=== PATIENT | female | born 1935 | race Caucasian/White ===

== ENCOUNTER 2024-02-05 08:02 | Day surgery (SDC) | payer MEDICARE, OTHER, SELFPAY ==
[2024-02-05] VITALS (11 sets, daily range): BP systolic 120–150; BP diastolic 48–139; BMI 20.4
--- NOTE | 2024-02-05 13:07 | ITS.CL.PACE ---
Addendum entered and electronically signed by Kike Toro MD 02/06/24 10:37:
Correction/addition:
The procedure is in addition of atrial lead to the pacemaker lead. The procedure should say
'conversion of single-chamber pacemaker to dual-chamber pacemaker'
The previous generator was removed and a new generator capable of atrial and ventricular pacing lead was implanted.
Explanted generator: Generator: Mixpanel; Model: W1DR01; Serial # [id number]�-implanted on 11/16/2020�explanted on 02/05/2024.
Original Note:
[employer] - Pacemaker Implant
Pacemaker Implant
Procedure Report:
Single Chamber Pacemaker Placement:
Ms. Matos is a very pleasant 89 yrs old woman who presented with recurrent atrial arrhtyhmia s/p single chamber PPM and has had AVJ ablation has achieved sinus rhythm now with AV dyssynchrony with fatigue and lethargy and is advised addition of
atrial lead for improved atrioventricular synchronization.�
Indications: Atrial ventricular dyssynchrony with pacemaker dependent patient.
Date of the Procedure: 02/05/2024
Pre-Operative Diagnosis: Atrial ventricular dyssynchrony
Post-Operative Diagnosis: Atrial ventricular dyssynchrony
Procedure Performed: ADDITION OF ATRIAL LEAD TO UPGRADE TO DUAL CHAMBER PACEMAKER IMPLANTATION
Performing Physician:
Kike Toro MD
Assistants:
EP staff
Anesthesia:
See anesthesia records
Pre-operative antibiotics:
Ancef 2gm IV
Detailed Description of the Procedure:
The patient was identified using hospital identification and informed consent obtained for the procedure. The risks were explained including, but not limited to: Bleeding, infection, arrhythmia, stroke, vascular/cardiac/lung puncture, surgery,
pacemaker dependency/device malfunction. All questions were answered.
The patient was brought to the electrophysiology laboratory in stable condition in fasting state. Continuous electrocardiographic and hemodynamic monitoring was initiated. The initial rhythm was atrial tachycardia.
The procedure site was meticulously prepared with surgical scrub and allowed to dry with no pooling. Sterile draping was applied to cover the procedure site. The image intensifier was draped with sterile bag and positioned over the patient.
A surgical pause and time out was performed immediately prior to the procedure with review of her medical history, recent labs, allergies and medications with site of procedure identified and consent noted in the chart. Antibiotics pre operatively
given. All team members concurred.
The right infraclavicular region was prepped and draped in the usual sterile fashion. Local anesthesia was administered subcutaneously using 1% lidocaine / Bupivacaine.
The axillary vein was accessed but the guidewire was not able to pass. A venogram was done that showed occluded axillary vein with collaterals established.
Venoplasty:
Using micro-puncture apparatus the axillary vein was accessed and was advanced along the RV lead to the subclavian vein. Once the venous access obtained a guide wire was placed. Using multiple dilators from 6Fr to 10 Fr, the vein was dilated. A long
sheath was placed in the SVC over the guidewire.
The right atrial lead was advanced and was secured to the RAA using active fixation mechanism.
Using the atrial lead the RA was paced and atrial tachycardia was pace terminated. The sinus rhythm was then achieved and leads and PPM was tested.
There was excellent sensing, pacing, and impedance from the lead, with no diaphragmatic stimulation at 10 V output.�Bovie cautery, antibiotics, and fluoroscopy were used.
The sheath was withdrawn, and the thresholds remained acceptable. The lead was secured in position at the venous entry site with 2-0 Ethibond.
The PPM pocket was adjusted and the capsule was cut and extended to accommodate the larger size generator. The electrode terminals were connected to the pulse generator.
The RV lead was moved from the old generator to the new one at the corresponding terminal. The generator was placed into the pocket. The wound was irrigated thoroughly with antibiotic solution.
A Tyrx pouch was placed around the device and the leads with high risk of infection.
The wound was closed in 3 layers using 2-0 V-Loc followed by 4-0 V lock sutures to the dermis. Steri-strips were applied externally and covered with Aquacel bandage.
Procedure End:
The procedure was tolerated well. A pressure bandage was placed.
Estimated Blood loss:
5 cc
Specimens Removed:
No cultures and no specimens were obtained. No intraoperative pathology was identified.
Urine output:
None
Packs / Drains/ Tubes:
None
Instrument / Sponge Count Correct:
Yes
Complications of the Procedure:
None
Condition of Patient at Time of Transfer:
Hemodynamically stable with no neurological or vascular compromise.
Device information:�
Generator: Mixpanel; Model: W1DR01; Serial # [id number]�
Atrial Lead:
Medtronic; Model: 5076-45 Serial # [id number] - implanted: 02/05/24
Measured data in the right atrium was sensing of 1.5 mV, impedance of 513 ohms and threshold of 0.75 V at 0.4ms.
RV Lead:
Medtronic; Model: 5076-52; Serial # [id number] - implanted: 11/17/2020
Measured data in the RV lead was impedance of 437 ohms and threshold of 1.25 V at 0.4ms. There is no underlying rhtyhm and patient is dependent. �
Bucky parameter settings were DDDR 60-130 bpm. �
����������� Mode Switch: On
����������� Paced AV interval: 180ms
����������� Sensed AV interval: 150 ms.
����������� Rate Adaptive A-V Interval: On
Output parameters:
����������������������� Amplitude (V)������������� Pulse Width (ms)������� Sensitivity (mV)
����������� RA: ���� 3.5 ����������������� ����������� 0.4������������������ ����������� 0.3
����������� RV:����� 3.5������������������ ����������� 0.4������������������ ����������� 1.2
Summary:
Successful implantation of MRI compatible dual chamber Medtronic pacemaker
Results/Recommendations:
-Please follow up CXR�
- Please provide patient with adequate pain control�
Instructions to be given to patient:�
- Please follow up with [facility] at [address] [place] [address] ([phone]) to get your wound checked within 14 days of your discharge.
- Do not wet incision site until after it is evaluated at cardiology clinic. No soaking or bath until then. Showers or Sponge baths are OK.�Dab dry the area after a shower.
- Do not lift left elbow above shoulder, particularly with sudden jerking movements, for 1 month�
- Do not lift anything weighing more than 10 pounds with the left arm for 1 month�
- If you notice any fevers, shortness of breath, lightheadedness, chest pain, or worsening swelling in the wound site, please contact the arrhythmia clinic, contact your ammonia refrigeration technician, or present to the hospital for evaluation.�
Kike Toro MD
Electrophysiology
--- NOTE | 2024-02-05 14:34 | PTCARENOTE ---
transported pt to radiology w pt on monitor. Pt returned to [facility]. Notifed Alina DENT of x ray completed.
[2024-02-05] MEDS: ANCEF 5 IV (16:44)
== END 2024-02-05 17:11 | disposition home or self-care (01) ==
LOC: CATH 08:02
PROVIDERS: ATTENDING PHYSICIAN Internal Medicine Cardiovascular Disease; FAMILY PHYSICIAN Internal Medicine; OTHER PHYSICIAN Internal Medicine Cardiovascular Disease
DX: Z45.010 Encounter for checking and testing of cardiac pacemaker pulse generator [battery] (principal); I10 Essential (primary) hypertension; I47.19 Other supraventricular tachycardia; Z79.01 Long term (current) use of anticoagulants; Z79.890 Hormone replacement therapy; Z79.899 Other long term (current) drug therapy; Z87.891 Personal history of nicotine dependence; I49.5 Sick sinus syndrome
CPT/HCPCS: 33214; 71045; 93005; C1785; C1892; C1898; Q9967

== ENCOUNTER 2024-04-05 06:37 | Day surgery (SDC) | payer MEDICARE, OTHER, SELFPAY ==
[2024-04-05] VITALS (11 sets, daily range): BP systolic 94–147; BP diastolic 58–88; BMI 19.5
[2024-04-05 07:57] LABS: Hematocrit 33.8 % (37.0-47.0); Hemoglobin 11.6 g/dL (12.0-16.0); Mean Corp Hgb Conc. 34.3 g/dL (33.0-37.0); Mean Corpuscular Hgb 31.1 pg (27.0-31.0); Mean Corpuscular Volume 90.6 fL (81.0-99.0); Mean Platelet Volume 8.7 fL (7.4-10.4); Platelet Count 304 10^3/uL (130-400); Red Blood Cell Count 3.73 10^6/uL (4.20-5.40); Red Cell Dist. Width 13.9 % (11.5-14.5); White Blood Cell Count 6.6 10^3/uL (4.8-10.8)
[2024-04-05 08:10] LABS: Blood Urea Nitrogen 24 mg/dl (7-17); Calcium 9.3 mg/dl (8.4-10.2); Carbon Dioxide 29 mmol/L (22-30); Chloride 98 mmol/L (98-107); Estimated Creatinine Clearance 38 ml/min; Glucose 85 mg/dl (70-99); Potassium 4.4 mmol/L (3.5-5.1); Sodium 137 mmol/L (135-145); eGFR > 60.00
--- NOTE | 2024-04-05 09:35 | SUR.PHASEI ---
Pt had expiratory wheezing when she came to the hospital this morning. Received her post and continues with wheezing. 'Pt states she feels like she can't take a deep breath. Sat's range from 83-9% on RA. Dr. Mann aware and received an order for
for Duoneb. Respiratory made aware. Will continue to monitor pt closely.
[2024-04-05] MEDS: DUONEB 3 ML INH (09:43)
== END 2024-04-05 10:45 | disposition home or self-care (01) ==
LOC: SDS 06:37
PROVIDERS: ATTENDING PHYSICIAN Urology
DX: T83.190A Other mechanical complication of urinary electronic stimulator device, initial encounter (principal); Y73.8 Miscellaneous gastroenterology and urology devices associated with adverse incidents, not elsewhere classified; R15.9 Full incontinence of feces
CPT/HCPCS: 64590; 64561; 72170; 76000; 80048; 85027; 87086; 94640; C1767; C1778; C1787; L8681